=== PATIENT | male | born 1970 | race Caucasian/White ===

== ENCOUNTER 2018-02-18 10:28 | Emergency (ER) | payer OTHER ==
[~2018-02-18] VITALS: Ht 190.5 cm; Wt 99.8 kg
[2018-02-18 10:30] VITALS: Ht 190.5 cm; Wt 99.8 kg
[2018-02-18 11:22] LABS: BASOPHIL % 0.6 % (0-2); PLATELET COUNT 220 x10^3mcL (130-400)
[2018-02-18 12:20] LABS: microscopic required? YES; urine erythrocyte TRACE (NEGATIVE)
[2018-02-18 12:21] LABS: CALCIUM 9.2 mg/dL (8.5-10.1); CARBON DIOXIDE 28.4 mmol/L (21-32); CHLORIDE SERUM 104 mmol/L (98-107); CREATININE SERUM 1.2 mg/dL (0.7-1.3); GFR1 > 60 mL/min; GLUCOSE SERUM 116 mg/dL (74-106); POTASSIUM SERUM 4.5 mmol/L (3.5-5.1); SODIUM SERUM 139 mmol/L (136-145)
[2018-02-18 12:24] LABS: ALBUMIN 3.6 g/dL (3.4-5.0); ALKALINE PHOSPHATASE 90 U/L (46-116); ALT/SGPT 29 U/L (16-63); AMYLASE 39 U/L (25-115); AST/SGOT 21 U/L (15-37); BILIRUBIN TOTAL 0.35 mg/dL (0.20-1.00); HDL CHOLESTEROL 58 mg/dL (40-60); LIPASE 114 IU/L (73-393); TOTAL PROTEIN, SERUM 7.5 g/dL (6.4-8.2)
[2018-02-18 12:27] LABS: CHOLESTEROL 248 mg/dL (<200)
[2018-02-18 12:37] LABS: AMPHETAMINE QUAL UR NONE DETECTED (See below)
[2018-02-18 16:34] VITALS: BP 174/129
== END 2018-02-18 16:34 | disposition short-term general hospital (02) ==
LOC: ED 10:28
PROVIDERS: Emergency Medicine
DX: S00.03XA Contusion of scalp, initial encounter (principal); K02.9 Dental caries, unspecified; F17.210 Nicotine dependence, cigarettes, uncomplicated; Z88.1 Allergy status to other antibiotic agents; W18.39XA Other fall on same level, initial encounter; Y93.89 Activity, other specified; Y92.89 Other specified places as the place of occurrence of the external cause; Y99.8 Other external cause status
CPT/HCPCS: 90715; 99406; G0480; Q0092